=== PATIENT | female | born 2000 | race Caucasian/White ===

== ENCOUNTER 2019-08-08 10:42 | Emergency (ER) | payer OTHER, BC ==
--- NOTE | 2019-08-08 11:20 | EDM.PDOC ---
ED HPI GENERAL MEDICAL PROBLEM - General Chief Complaint: Head Injury Stated Complaint: HEAD INJURY/DIZZINESS Time Seen by Provider: 08/08/19 11:19 - History of Present Illness INITIAL COMMENTS - FREE TEXT/NARRATIVE: 18-year-old female presents emergency room with head injury. This occurred about 2 hours ago. She's working in the attic and walked into a been. There was no loss of consciousness no nausea no vomiting no unusual behavior she has intermittent dizziness whether or not this is new is unclear. She is otherwise doing well. She hit the front of her head at the level of her right eye and bridge of her nose. No vision changes no nasal problems no bloody nose. Other Treatments [employer]: none - Related Data Allergies Allergy/AdvReac Type Severity Reaction Status Date / Time No Known Allergies Allergy Verified 08/08/19 10:56 Home Meds: Home Meds FLUoxetine [PROzac] 40 mg PO DAILY 08/08/19 [History] Past Medical History Psychiatric History: Reports: Anxiety, Depression Social & Family History - Tobacco Use Smoking Status *Q: Former Smoker Used Tobacco, but Quit: Yes Month/Year Tobacco Last Used: 2 months - Caffeine Use Caffeine Use: Reports: Coffee, Energy Drinks, Soda - Recreational Drug Use Recreational Drug Use: No ED ROS GENERAL - Review of Systems Review Of Systems: See Below Constitutional: Reports: No Symptoms HEENT: Reports: No Symptoms Respiratory: Reports: No Symptoms Cardiovascular: Reports: No Symptoms GI/Abdominal: Reports: No Symptoms : Reports: No Symptoms Musculoskeletal: Reports: No Symptoms Skin: Reports: No Symptoms Neurological: Reports: No Symptoms Psychiatric: Reports: No Symptoms Hematologic/Lymphatic: Reports: No Symptoms Immunologic: Reports: No Symptoms ED EXAM, HEAD INJURY - Physical Exam Exam: See Below Text/Narrative:: Visual acuity was checked she is 20/20 in both left and right eye and 20/15 with both Exam Limited By: No Limitations General Appearance: Alert Head: Atraumatic, Normocephalic, Other (He might have a little corrina over the bridge of her nose and over her right lateral orbit not much) Nexus Criteria: No: Posterior, Midline Cervical Tenderness, Evidence of Intoxication, Altered Level of Consciousness, Focal Neurological Deficit, Painful Distraction Injuries Eyes: Bilateral Eye: EOMI, Normal Inspection, PERRL Ears: Normal External Exam, Normal Canal, Hearing Grossly Normal, Normal TMs Nose: Normal Inspection, Normal Mucousa, No Blood Throat/Mouth: Normal Inspection, Normal Lips, Normal Teeth Neck: Non-Tender, Full Range of Motion, Normal Alignment, Normal Inspection. 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 Cerebellar testing is entirely within normal limits: Normal neurologic exam). No: Abnormal Cerebellar Tests Skin: Normal Color, Warm/Dry - [place] Coma Score Best Eye Response ([place]): (4) Open Spontaneously Best Verbal Response ([place]): (5) Oriented Best Motor Response ([place]): (6) Obeys Commands Course - Vital Signs Last Recorded V/S: Last Vital Signs Temp 37.1 C 08/08/19 10:59 Pulse 89 08/08/19 10:59 Resp 20 08/08/19 10:59 BP 127/89 08/08/19 10:59 Pulse Ox 99 08/08/19 10:59 - Re-Assessments/Exams Free Text/Narrative Re-Assessment/Exam: 08/08/19 11:38 Normal exam normal neurologic exam CT really not indicated did discuss the indications for CT with the patient and she agrees to hold off on this. It's now been over 2 hours since the time of the accident patient is doing fine Departure - Departure Time of Disposition: 11:39 Disposition: Home, Self-Care 01 Clinical Impression: Head injury - Discharge Information Referrals: PCP,None [Primary Care Provider] - Forms: ED Department Discharge Additional Instructions: Return to the emergency room with any questions problems or concerning symptoms. Tylenol or Motrin as needed for pain follow-up with your regular provider early next week if needed.
== END 2019-08-08 12:00 | disposition home or self-care (01) ==
LOC: JD.ED 10:42
DX: S09.90XA Unspecified injury of head, initial encounter (principal); F41.9 Anxiety disorder, unspecified; F32.9 Major depressive disorder, single episode, unspecified; Z87.891 Personal history of nicotine dependence; Z79.899 Other long term (current) drug therapy; W22.8XXA Striking against or struck by other objects, initial encounter
CPT/HCPCS: 99282; 99283

== ENCOUNTER 2024-09-27 16:04 | Inpatient (IN) | payer BC ==
[~2024-09-27 16:04] MED LIST: Ropivacaine 0.2% PF 2 MG/ML 20 ML SDV ONE; Sodium Chloride 0.9% 10 ML SDV ONE
[2024-09-27] MEDS: Misoprostol 25 MCG (1/4 of 100 MCG) Tab VAG PRN (16:35)
[2024-09-27] MEDS ORDERED: Ondansetron 4 MG/2 ML SDV IVPUSH PRN (16:44)
[2024-09-27] MEDS ORDERED: Lidocaine 1% 50 ML MDV INJECT PRN (16:44)
[2024-09-27] MEDS ORDERED: Calcium Carbonate 500 MG Tab.Chew PO PRN (16:44)
[2024-09-27] MEDS ORDERED: Oxytocin/0.9 % Sodium Chloride 30 UNIT/500 ML BAG IV SCH (16:45)
[2024-09-27 17:02] LABS: BASOPHILS PERCENT AUTO 0.5 % (0.0-1.0); EOSINOPHILS ABSOLUTE AUTO 0.1 K/mm3 (0.0-0.4); EOSINOPHILS PERCENT AUTO 0.8 % (0.0-6.0); HEMATOCRIT 39.7 % (37.0-47.0); HEMOGLOBIN 13.7 gm/dl (12.0-16.0); IMMATURE GRAN ABSOLUTE AUTO 0.03 K/mm3 (0.00-0.05); IMMATURE GRAN PERCENT AUTO 0.5 % (0.0-0.4); LYMPHOCYTES ABSOLUTE AUTO 1.2 K/mm3 (1.0-4.8); LYMPHOCYTES PERCENT AUTO 20.1 % (24.0-44.0); MEAN CORPUSCULAR HEMOGLOBIN 29.7 pg (28.0-32.0); MEAN CORPUSCULAR HGB CONC 34.5 g/dl (32.0-36.0); MEAN CORPUSCULAR VOLUME 86.1 fl (83.0-99.0); MEAN PLATELET VOLUME 9.8 fl (9.4-12.3); MONOCYTES ABSOLUTE AUTO 0.4 K/mm3 (0.0-0.8); MONOCYTES PERCENT AUTO 6.6 % (0.0-8.0); NEUTROPHILS ABSOLUTE AUTO 4.3 K/mm3 (1.8-7.7); NEUTROPHILS PERCENT AUTO 71.5 % (41.0-71.0); PLATELET COUNT,PLT 184 K/mm3 (150-400); RED BLOOD CELL COUNT 4.61 M/mm3 (4.10-5.30); WHITE BLOOD CELL COUNT,WBC 6.02 K/mm3 (3.9-11.3)
[2024-09-27] MEDS: Lactated Ringers 1,000 ML IV SCH (20:00)
[2024-09-28] MEDS: diphenhydrAMINE 50 MG Cap PO ONE (01:16)
[2024-09-28] MEDS: Nalbuphine 10 MG/1 ML Vial IVPUSH PRN (01:32)
[2024-09-28] MEDS: Oxytocin/0.9 % Sodium Chloride 30 UNIT/500 ML BAG IV SCH (08:17)
[2024-09-28] MEDS ORDERED: ePHEDrine 50 MG/ML SDV IVPUSH PRN ×2 (09:06→21:51)
[2024-09-28] MEDS ORDERED: diphenhydrAMINE 50 MG/ML SDV IVPUSH PRN ×2 (09:06→21:03)
[2024-09-28] MEDS: Bupivacaine/fentaNYL/NS 100 ML Bag EPIDUR PRN (14:32)
[2024-09-28] MEDS: fentaNYL 100 MCG/2 ML SDV EPIDUR PRN (16:50)
[2024-09-28] MEDS ORDERED: Ondansetron 4 MG/2 ML SDV ONE (19:37)
[2024-09-28] MEDS ORDERED: dexmedeTOMIDine HCl 200 MCG/2 ML SDV ONE (19:37)
[2024-09-28] MEDS ORDERED: Lidocaine 2% with EPINEPHrine 1:200,000 20 ML SDV ONE (19:37)
[2024-09-28] MEDS ORDERED: Phenylephrine 1% 10 MG/ML SDV ONE (19:37)
[2024-09-28] MEDS ORDERED: fentaNYL 100 MCG/2 ML SDV ONE (19:37)
[2024-09-28] MEDS ORDERED: ceFAZolin 2 GM in Sodium Chloride 0.9% 50 ML IV ONE (19:46)
[2024-09-28] MEDS ORDERED: Sodium Chloride 0.9% 10 ML Syringe FLUSH PRN (19:46)
[2024-09-28] MEDS: Azithromycin 500 MG in Sodium Chloride 0.9% 250 ML IV ONE (19:57)
[2024-09-28] MEDS: Citric Acid/Sodium Citrate Solution 30 ML Cup PO ONE (19:58)
[2024-09-28] MEDS: Metoclopramide 10 MG/2 ML SDV IVPUSH ONE (19:59)
[2024-09-28] MEDS ORDERED: Lactated Ringers 1,000 ML IV SCH (20:00)
[2024-09-28] MEDS ORDERED: Dexamethasone 4 MG/ML SDV ONE (20:08)
[2024-09-28] MEDS ORDERED: Ketorolac 30 MG/ML SDV ONE (20:31)
[2024-09-28] MEDS ORDERED: Morphine PF 10 MG/10 ML SDV ONE (20:38)
[2024-09-28] MEDS ORDERED: Sodium Chloride 0.9% 10 ML Syringe FLUSH SCH (21:00)
[2024-09-28] MEDS ORDERED: Ondansetron 4 MG/2 ML SDV IVPUSH PRN (21:03)
[2024-09-28] MEDS ORDERED: fentaNYL 100 MCG/2 ML SDV IVPUSH PRN (21:03)
[2024-09-28] MEDS ORDERED: Meperidine 50 MG/ML Vial IVPUSH PRN (21:03)
[2024-09-28] MEDS ORDERED: oxyCODONE 5 MG Tab PO PRN (21:51)
[2024-09-28] MEDS ORDERED: Sennosides 8.6 MG Tab PO PRN (21:51)
[2024-09-28] MEDS ORDERED: Naloxone 0.4 MG/ML SDV IVPUSH PRN (21:51)
[2024-09-28] MEDS: Dextrose 5%-Lactated Ringers 1,000 ML IV SCH (22:10)
[2024-09-28] MEDS: Acetaminophen 325 MG Tab PO SCH (22:13)
[2024-09-28] MEDS: Docusate Sodium 100 MG Cap PO SCH (22:13)
[2024-09-28] MEDS: Ibuprofen 800 MG Tab PO SCH (23:13)
[2024-09-29] MEDS: diphenhydrAMINE 50 MG/ML SDV IVPUSH PRN (04:22)
[2024-09-29 05:28] LABS: HEMATOCRIT 34.1 % (37.0-47.0); MEAN CORPUSCULAR HEMOGLOBIN 30.2 pg (28.0-32.0); MEAN CORPUSCULAR HGB CONC 34.6 g/dl (32.0-36.0); MEAN CORPUSCULAR VOLUME 87.2 fl (83.0-99.0); PLATELET COUNT,PLT 163 K/mm3 (150-400); RED BLOOD CELL COUNT 3.91 M/mm3 (4.10-5.30); WHITE BLOOD CELL COUNT,WBC 16.13 K/mm3 (3.9-11.3)
[2024-09-29 05:32] LABS: HEMOGLOBIN 11.8 gm/dl (12.0-16.0)
[2024-09-29] MEDS: Prenatal Multivitamin with Calcium/Folic Acid/Iron Tab PO SCH (09:26)
[2024-09-29] MEDS: Simethicone 80 MG Tab.Chew PO PRN (21:41)
[2024-09-30] MEDS: metFORMIN 500 MG Tab PO SCH (02:45)
[2024-09-30] MEDS: Acetaminophen 325 MG Tab PO SCH (08:30)
[2024-09-30] MEDS ORDERED: oxyCODONE 5 MG Tab PO PRN (10:47)
== END 2024-09-30 16:20 | disposition home or self-care (01) | DRG 540 ==
LOC: JD.OB 16:04 → OBSVTOIN 09-28 20:20 → JD.OB 09-28 20:21
PROVIDERS: ADMIT Family Medicine; ATTEND Family Medicine
PROC: 3E0R3BZ Introduction of Anesthetic Agent into Spinal Canal, Percutaneous Approach (ICD-10-PCS; 2024-09-28)
PROC: 3E0R33Z Introduction of Anti-inflammatory into Spinal Canal, Percutaneous Approach (ICD-10-PCS; 2024-09-28)
PROC: 3E033VJ Introduction of Other Hormone into Peripheral Vein, Percutaneous Approach (ICD-10-PCS; 2024-09-28)
PROC: 3E0P7VZ Introduction of Hormone into Female Reproductive, Via Natural or Artificial Opening (ICD-10-PCS; 2024-09-28)
PROC: 10H07YZ Insertion of Other Device into Products of Conception, Via Natural or Artificial Opening (ICD-10-PCS; 2024-09-28)
PROC: 10907ZC Drainage of Amniotic Fluid, Therapeutic from Products of Conception, Via Natural or Artificial Opening (ICD-10-PCS; 2024-09-28)
PROC: 0U7C7ZZ Dilation of Cervix, Via Natural or Artificial Opening (ICD-10-PCS; 2024-09-28)
PROC: 10D00Z1 Extraction of Products of Conception, Low, Open Approach (ICD-10-PCS; principal; 2024-09-28 19:53)
DX: O99.284 Endocrine, nutritional and metabolic diseases complicating childbirth (principal); O99.52 Diseases of the respiratory system complicating childbirth; J45.909 Unspecified asthma, uncomplicated; E28.2 Polycystic ovarian syndrome; O76 Abnormality in fetal heart rate and rhythm complicating labor and delivery; Z37.0 Single live birth; Z3A.39 39 weeks gestation of pregnancy
CPT/HCPCS: 01967; 01968; 36415; 51701; 51702; 59025; 85025; 85027; 86592; A9270-GY; J0456; J1100; J1200; J1885; J2274; J2300; J2371; J2405; J2765; J2795; J3010; J3490; J7050; J7120; J7121; J7999; Q0163